=== PATIENT | male | born 1955 | race Caucasian/White ===

== ENCOUNTER 2025-01-23 14:36 | Inpatient (IN) | payer MEDICARE ==
[2025-01-23] MEDS ORDERED: Sodium Chloride 0.9% 10 ML Syringe FLUSH PRN ×2 (14:58→15:43)
[2025-01-23] MEDS: Lactated Ringers 1,000 ML IV ONE (16:09)
[2025-01-23] MEDS ORDERED: Lactated Ringers 1,000 ML IV SCH (17:30)
[2025-01-23] MEDS: OLANZapine 5 MG Tab.DIS PO SCH (20:00)
[2025-01-24 07:28] LABS: BASOPHILS ABSOLUTE AUTO 0.07 K/uL (0.00-0.20); BASOPHILS PERCENT AUTO 1.1 % (0.0-2.0); EOSINOPHILS ABSOLUTE AUTO 1.12 K/uL (0.00-0.50); EOSINOPHILS PERCENT AUTO 18.0 % (0.0-5.0); IMMATURE GRAN ABSOLUTE AUTO 0.02 10^3/uL (0.00-0.04); IMMATURE GRAN PERCENT AUTO 0.3 % (0.0-0.4); LYMPHOCYTES ABSOLUTE AUTO 1.46 K/uL (0.50-3.50); LYMPHOCYTES PERCENT AUTO 23.5 % (10.0-50.0); MONOCYTES ABSOLUTE AUTO 0.58 K/uL (0.00-1.00); MONOCYTES PERCENT AUTO 9.3 % (2.0-14.0); NEUTROPHILS ABSOLUTE AUTO 2.97 K/uL (1.40-7.00); NEUTROPHILS PERCENT AUTO 47.8 % (45.0-80.0); PLATELET COUNT,PLT 200 K/uL (150-350); RED BLOOD CELL COUNT 2.77 M/uL (4.33-5.41); RED CELL DISTRIBUTION WIDTH 16.1 % (11.2-14.1); WHITE BLOOD CELL COUNT,WBC 6.2 K/uL (4.0-10.2)
[2025-01-24 07:57] LABS: BLOOD UREA NITROGEN,BUN 26.0 mg/dL (7-18); CARBON DIOXIDE,CO2 24.1 mmol/L (21.0-32.0); CHLORIDE,CL 106.0 mmol/L (98-107); CREATININE 2.83 mg/dL (0.51-1.17); EST CRCL DRUG DOSING (CG) 24.17 mL/min; GLUCOSE RANDOM 92.0 mg/dL (70-99); POTASSIUM,K 4.4 mmol/L (3.5-5.1); SODIUM,NA 139.0 mmol/L (136-145)
[2025-01-24 08:04] LABS: ESTIMATED GFR 24.0 mL/min (>=60)
[2025-01-24 08:05] LABS: INR 2.0 (0.9-1.1)
[2025-01-25 08:29] LABS: BASOPHILS ABSOLUTE AUTO 0.08 K/uL (0.00-0.20); BASOPHILS PERCENT AUTO 1.2 % (0.0-2.0); EOSINOPHILS ABSOLUTE AUTO 1.22 K/uL (0.00-0.50); EOSINOPHILS PERCENT AUTO 18.0 % (0.0-5.0); IMMATURE GRAN ABSOLUTE AUTO 0.02 10^3/uL (0.00-0.04); IMMATURE GRAN PERCENT AUTO 0.3 % (0.0-0.4); LYMPHOCYTES ABSOLUTE AUTO 1.48 K/uL (0.50-3.50); LYMPHOCYTES PERCENT AUTO 21.9 % (10.0-50.0); MONOCYTES ABSOLUTE AUTO 0.61 K/uL (0.00-1.00); MONOCYTES PERCENT AUTO 9.0 % (2.0-14.0); NEUTROPHILS ABSOLUTE AUTO 3.36 K/uL (1.40-7.00); NEUTROPHILS PERCENT AUTO 49.6 % (45.0-80.0); PLATELET COUNT,PLT 224 K/uL (150-350); RED BLOOD CELL COUNT 2.92 M/uL (4.33-5.41); RED CELL DISTRIBUTION WIDTH 16.2 % (11.2-14.1); WHITE BLOOD CELL COUNT,WBC 6.8 K/uL (4.0-10.2)
[2025-01-25 09:54] LABS: BLOOD UREA NITROGEN,BUN 22.0 mg/dL (7-18); CARBON DIOXIDE,CO2 25.9 mmol/L (21.0-32.0); CHLORIDE,CL 107.0 mmol/L (98-107); CREATININE 2.83 mg/dL (0.51-1.17); EST CRCL DRUG DOSING (CG) 24.17 mL/min; GLUCOSE RANDOM 90.0 mg/dL (70-99); POTASSIUM,K 4.6 mmol/L (3.5-5.1); SODIUM,NA 142.0 mmol/L (136-145)
[2025-01-25 10:00] LABS: ESTIMATED GFR 24.0 mL/min (>=60)
== END 2025-01-25 10:10 | disposition home or self-care (01) | DRG 684 ==
LOC: LL.ED 14:36 → LL.MS 15:55
PROVIDERS: ADMIT Emergency Medicine; ATTEND Emergency Medicine
DX: N17.9 Acute kidney failure, unspecified (principal); I12.9 Hypertensive chronic kidney disease with stage 1 through stage 4 chronic kidney disease, or unspecified chronic kidney disease; N18.4 Chronic kidney disease, stage 4 (severe); I25.10 Atherosclerotic heart disease of native coronary artery without angina pectoris; E78.00 Pure hypercholesterolemia, unspecified; Z66 Do not resuscitate; J44.9 Chronic obstructive pulmonary disease, unspecified; F32.A Depression, unspecified; D63.1 Anemia in chronic kidney disease; Z95.1 Presence of aortocoronary bypass graft; Z95.2 Presence of prosthetic heart valve; Z88.8 Allergy status to other drugs, medicaments and biological substances; Z79.52 Long term (current) use of systemic steroids; Z79.2 Long term (current) use of antibiotics; Z79.899 Other long term (current) drug therapy; Z79.01 Long term (current) use of anticoagulants; I25.2 Old myocardial infarction; Z87.891 Personal history of nicotine dependence
CPT/HCPCS: 36415; 80048; 83735; 85025; 85610; 96360; 99223; 99233; 99239; 99284-25; A9270-GY; J7030; J7120

== ENCOUNTER 2025-01-31 13:44 | Inpatient (IN) | payer MEDICARE ==
[2025-01-31] MEDS ORDERED: Sodium Chloride 0.9% 10 ML Syringe FLUSH PRN (13:58)
[2025-01-31 14:09] LABS: BASOPHILS ABSOLUTE AUTO 0.06 K/uL (0.00-0.20); BASOPHILS PERCENT AUTO 0.9 % (0.0-2.0); EOSINOPHILS ABSOLUTE AUTO 1.09 K/uL (0.00-0.50); EOSINOPHILS PERCENT AUTO 15.8 % (0.0-5.0); IMMATURE GRAN ABSOLUTE AUTO 0.02 10^3/uL (0.00-0.04); IMMATURE GRAN PERCENT AUTO 0.3 % (0.0-0.4); LYMPHOCYTES ABSOLUTE AUTO 1.39 K/uL (0.50-3.50); LYMPHOCYTES PERCENT AUTO 20.2 % (10.0-50.0); MONOCYTES ABSOLUTE AUTO 0.67 K/uL (0.00-1.00); MONOCYTES PERCENT AUTO 9.7 % (2.0-14.0); NEUTROPHILS ABSOLUTE AUTO 3.66 K/uL (1.40-7.00); NEUTROPHILS PERCENT AUTO 53.1 % (45.0-80.0); PLATELET COUNT,PLT 205 K/uL (150-350); RED BLOOD CELL COUNT 3.15 M/uL (4.33-5.41); RED CELL DISTRIBUTION WIDTH 16.5 % (11.2-14.1); WHITE BLOOD CELL COUNT,WBC 6.9 K/uL (4.0-10.2)
[2025-01-31 14:31] LABS: ALANINE AMINOTRANSFERASE,ALT 9.0 U/L (12-78); ASPARTATE AMNIOTRANSFERASE,AST 13.0 U/L (15-37); BILIRUBIN TOTAL 0.3 mg/dL (0.2-1.0); BLOOD UREA NITROGEN,BUN 35.0 mg/dL (7-18); CARBON DIOXIDE,CO2 28.2 mmol/L (21.0-32.0); CHLORIDE,CL 103.0 mmol/L (98-107); EST CRCL DRUG DOSING (CG) 18.52 mL/min; GLUCOSE RANDOM 106.0 mg/dL (70-99); POTASSIUM,K 4.9 mmol/L (3.5-5.1); PROTEIN TOTAL,TP 7.3 g/dL (6.4-8.2); SODIUM,NA 141.0 mmol/L (136-145)
[2025-01-31 14:34] LABS: CREATININE 3.57 mg/dL (0.51-1.17); ESTIMATED GFR 18.0 mL/min (>=60)
[2025-01-31 14:36] LABS: LACTIC ACID 1.1 mmol/L (0.4-2.0)
[2025-01-31] MEDS ORDERED: Loperamide 2 MG Tab PO PRN (15:12)
[2025-01-31 16:27] LABS: INR 2.1 (0.9-1.1); PTT,PARTIAL THROMBOPLSTIN TIME 35.1 SEC (23.8-34.4)
[2025-01-31] MEDS: hydrALAZINE 20 MG/ML SDV IVPUSH PRN (17:43)
[2025-01-31] MEDS ORDERED: Ondansetron 4 MG Tab.DIS PO PRN (20:06)
[2025-01-31] MEDS: OLANZapine 5 MG Tab.DIS PO SCH (21:15)
[2025-02-01 07:23] LABS: BASOPHILS ABSOLUTE AUTO 0.07 K/uL (0.00-0.20); BASOPHILS PERCENT AUTO 0.9 % (0.0-2.0); EOSINOPHILS ABSOLUTE AUTO 0.92 K/uL (0.00-0.50); EOSINOPHILS PERCENT AUTO 12.3 % (0.0-5.0); IMMATURE GRAN ABSOLUTE AUTO 0.02 10^3/uL (0.00-0.04); IMMATURE GRAN PERCENT AUTO 0.3 % (0.0-0.4); LYMPHOCYTES ABSOLUTE AUTO 1.66 K/uL (0.50-3.50); LYMPHOCYTES PERCENT AUTO 22.2 % (10.0-50.0); MONOCYTES ABSOLUTE AUTO 0.62 K/uL (0.00-1.00); MONOCYTES PERCENT AUTO 8.3 % (2.0-14.0); NEUTROPHILS ABSOLUTE AUTO 4.20 K/uL (1.40-7.00); NEUTROPHILS PERCENT AUTO 56.0 % (45.0-80.0); PLATELET COUNT,PLT 201 K/uL (150-350); RED BLOOD CELL COUNT 2.93 M/uL (4.33-5.41); RED CELL DISTRIBUTION WIDTH 16.9 % (11.2-14.1); WHITE BLOOD CELL COUNT,WBC 7.5 K/uL (4.0-10.2)
[2025-02-01] MEDS: Pantoprazole 20 MG Tab, Delayed Release PO SCH (07:39)
[2025-02-01 07:48] LABS: ASPARTATE AMNIOTRANSFERASE,AST 11 U/L (15-37); BILIRUBIN TOTAL 0.4 mg/dL (0.2-1.0); BLOOD UREA NITROGEN,BUN 32 mg/dL (7-18); CARBON DIOXIDE,CO2 23.2 mmol/L (21.0-32.0); CHLORIDE,CL 108 mmol/L (98-107); EST CRCL DRUG DOSING (CG) 21.46 mL/min; GLUCOSE RANDOM 102 mg/dL (70-99); POTASSIUM,K 4.6 mmol/L (3.5-5.1); PROTEIN TOTAL,TP 6.6 g/dL (6.4-8.2); SODIUM,NA 141 mmol/L (136-145)
[2025-02-01 08:17] LABS: ALANINE AMINOTRANSFERASE,ALT < 6 U/L (12-78); ESTIMATED GFR 21 mL/min (>=60)
[2025-02-01 08:18] LABS: CREATININE 3.08 mg/dL (0.51-1.17)
[2025-02-01 08:21] LABS: INR 2.0 (0.9-1.1); PTT,PARTIAL THROMBOPLSTIN TIME 34.1 SEC (23.8-34.4)
== END 2025-02-01 17:25 | disposition home or self-care (01) | DRG 684 ==
LOC: LL.ED 13:44 → LL.MS 16:48
PROVIDERS: ADMIT Physician Assistant; ATTEND Physician Assistant
DX: N17.9 Acute kidney failure, unspecified (principal); J44.9 Chronic obstructive pulmonary disease, unspecified; E86.0 Dehydration; H54.7 Unspecified visual loss; I25.10 Atherosclerotic heart disease of native coronary artery without angina pectoris; E78.00 Pure hypercholesterolemia, unspecified; N18.9 Chronic kidney disease, unspecified; N18.4 Chronic kidney disease, stage 4 (severe); I16.0 Hypertensive urgency; I12.9 Hypertensive chronic kidney disease with stage 1 through stage 4 chronic kidney disease, or unspecified chronic kidney disease; Z95.1 Presence of aortocoronary bypass graft; Z98.49 Cataract extraction status, unspecified eye; Z79.899 Other long term (current) drug therapy; Z88.8 Allergy status to other drugs, medicaments and biological substances; Z79.82 Long term (current) use of aspirin; Z79.52 Long term (current) use of systemic steroids; I25.2 Old myocardial infarction; Z95.2 Presence of prosthetic heart valve; Z79.01 Long term (current) use of anticoagulants
CPT/HCPCS: 36415; 80053; 83605; 83735; 85025; 85610; 85730; 99223; 99239; A9270-GY; J0360; J1920; J7030

== ENCOUNTER 2025-03-01 14:31 | Emergency (ER) | payer MEDICARE ==
[2025-03-01] MEDS ORDERED: Sodium Chloride 0.9% 10 ML Syringe FLUSH PRN (14:54)
[2025-03-01] MEDS: Lactated Ringers 1,000 ML IV SCH (15:05)
[2025-03-01 15:10] LABS: BASOPHILS ABSOLUTE AUTO 0.07 K/uL (0.00-0.20); BASOPHILS PERCENT AUTO 1.0 % (0.0-2.0); EOSINOPHILS ABSOLUTE AUTO 0.60 K/uL (0.00-0.50); EOSINOPHILS PERCENT AUTO 8.8 % (0.0-5.0); IMMATURE GRAN ABSOLUTE AUTO 0.01 10^3/uL (0.00-0.04); IMMATURE GRAN PERCENT AUTO 0.1 % (0.0-0.4); LYMPHOCYTES ABSOLUTE AUTO 1.29 K/uL (0.50-3.50); LYMPHOCYTES PERCENT AUTO 19.0 % (10.0-50.0); MONOCYTES ABSOLUTE AUTO 0.50 K/uL (0.00-1.00); MONOCYTES PERCENT AUTO 7.4 % (2.0-14.0); NEUTROPHILS ABSOLUTE AUTO 4.31 K/uL (1.40-7.00); NEUTROPHILS PERCENT AUTO 63.7 % (45.0-80.0); PLATELET COUNT,PLT 184 K/uL (150-350); RED BLOOD CELL COUNT 3.05 M/uL (4.33-5.41); RED CELL DISTRIBUTION WIDTH 17.1 % (11.2-14.1); WHITE BLOOD CELL COUNT,WBC 6.8 K/uL (4.0-10.2)
[2025-03-01 15:36] LABS: LACTIC ACID 0.8 mmol/L (0.4-2.0)
[2025-03-01 15:38] LABS: INR 3.4 (0.9-1.1); PTT,PARTIAL THROMBOPLSTIN TIME 53.0 SEC (23.8-34.4)
[2025-03-01 15:40] LABS: ALANINE AMINOTRANSFERASE,ALT 13 U/L (12-78); ASPARTATE AMNIOTRANSFERASE,AST 15 U/L (15-37); BILIRUBIN TOTAL 0.4 mg/dL (0.2-1.0); BLOOD UREA NITROGEN,BUN 40 mg/dL (7-18); CARBON DIOXIDE,CO2 25.4 mmol/L (21.0-32.0); CHLORIDE,CL 100 mmol/L (98-107); ESTIMATED GFR 15 mL/min (>=60); ETHANOL BLOOD MEDICAL 0.005 g/dL (0.000-0.080); GLUCOSE RANDOM 115 mg/dL (70-99); POTASSIUM,K 4.5 mmol/L (3.5-5.1); PROTEIN TOTAL,TP 7.7 g/dL (6.4-8.2); SODIUM,NA 136 mmol/L (136-145); TSH ULTRASENSITIVE 2.612 mIU/mL (0.358-3.740)
[2025-03-01 15:47] LABS: CREATININE 4.11 mg/dL (0.51-1.17)
== END 2025-03-01 16:30 | disposition home or self-care (01) ==
LOC: LL.ED 14:31
DX: E86.0 Dehydration (principal); N17.9 Acute kidney failure, unspecified; I25.10 Atherosclerotic heart disease of native coronary artery without angina pectoris; I25.2 Old myocardial infarction; J44.9 Chronic obstructive pulmonary disease, unspecified; Z79.899 Other long term (current) drug therapy; Z95.1 Presence of aortocoronary bypass graft; Z88.8 Allergy status to other drugs, medicaments and biological substances; Z88.1 Allergy status to other antibiotic agents; Z79.82 Long term (current) use of aspirin; Z79.01 Long term (current) use of anticoagulants; Z79.51 Long term (current) use of inhaled steroids; Z87.891 Personal history of nicotine dependence
CPT/HCPCS: 36415; 71045; 80053; 80307; 83605; 83735; 84443; 84484; 85025; 85610; 85730; 86140; 87040; 93005; 96360; 99285-25; J7120